=== PATIENT | male | born 1965 | race Hispanic/Latino ===

== ENCOUNTER 2022-06-20 12:26 | Emergency (ER) | payer OTHER ==
[~2022-06-20] VITALS: Ht 165.1 cm; Wt 88.0 kg
[2022-06-20] MEDS ORDERED: FAMOTIDINE 20MG VIAL IV STA (12:28)
[2022-06-20] MEDS ORDERED: SOLU-MEDROL 125MG VIAL IVP ONE (12:30)
[2022-06-20] MEDS ORDERED: DEXAMETHASONE SOD PHOSPHATE 4 MG/ML 1ML VIAL IM STA (12:55)
[2022-06-20 12:59] LABS: BASOPHILS % (AUTO) 0.3 % (0.0-5.0); EOSINOPHILS % (AUTO) 0.3 % (0.0-8.0); HEMATOCRIT 44.6 % (42-54); LYMPHOCYTES % (AUTO) 9.9 % (21.0-51.0); MEAN CORPUSCULAR HEMOGLOBIN 29.5 pg (27.0-33.0); MEAN CORPUSCULAR HGB CONC 34.8 g/dL (32.0-36.0); MONOCYTES % (AUTO) 5.3 % (3.0-13.0); NEUTROPHILS % (AUTO) 82.8 % (40.0-77.0); PLATELET COUNT (AUTO) 275 K/uL (130-400); RED BLOOD CELL COUNT(AUTO) 5.25 MIL/uL (4.50-6.20); RED CELL DISTRIBUTION WIDTH 12.2 % (11.0-15.5); WHITE BLOOD COUNT (AUTO) 18.3 K/uL (4.8-10.8)
[2022-06-20 13:18] LABS: CREATININE 1.4 mg/dL (0.5-1.5); POTASSIUM 5.8 mmol/L (3.5-5.1)
[2022-06-20 13:20] LABS: ALBUMIN 3.4 g/dL (3.5-5.0); TOTAL PROTEIN, SERUM 6.6 g/dL (6.0-8.3)
[2022-06-20] MEDS ORDERED: LORA10TA7 PO (14:03)
[2022-06-20] MEDS ORDERED: PRED5TAB44 PO (14:03)
[2022-06-20 14:41] VITALS: BP 112/64
== END 2022-06-20 14:42 | disposition home or self-care (01) ==
LOC: EDH 12:26
DX: T63.441A Toxic effect of venom of bees, accidental (unintentional), initial encounter (principal); D72.829 Elevated white blood cell count, unspecified; E11.9 Type 2 diabetes mellitus without complications; E78.00 Pure hypercholesterolemia, unspecified; I10 Essential (primary) hypertension; Z79.52 Long term (current) use of systemic steroids; Y92.89 Other specified places as the place of occurrence of the external cause
CPT/HCPCS: 36415; 80053; 85025; 96372; 96374; 96375; J1100; J2930; J3490